=== PATIENT | male | born 1960 | race African-American/Black ===

== ENCOUNTER → 2016-09-13 | Outpatient (CLI) | payer BC ==
--- NOTE | 2016-09-13 14:16 | KCIC ---
4 view left knee HISTORY: Posterior knee pain for 5 days. Hyperflexion injury. Surgery earlier this year. FINDINGS: Left knee replacement is identified. No evidence of an acute fracture. No aggressive bone destruction or osteolysis. IMPRESSION: No acute radiographic findings, post left knee arthroplasty. Electronically signed by: Shawn White MD (09/13/2016 2:13 PM)
== END | disposition home or self-care (01) ==
LOC: KCIC 12:47
PROVIDERS: ATTEND Family Medicine
DX: M25.562 Pain in left knee (principal)
CPT/HCPCS: 73562

== ENCOUNTER → 2018-12-30 | Outpatient (CLI) | payer BC ==
--- NOTE | 2018-12-30 17:56 | KCIC ---
LUMBAR SPINE MIN 4V History: Low back pain, right hip pain Comparison: None FINDINGS: 5 views of the lumbar spine are submitted. There is [id number] levoscoliosis centered near L4. There is very mild left lateral subluxation L4 relative to L5. There is moderate to severe degenerative disc disease L5-S1 and to a somewhat lesser degree at L4-5. There is multilevel spondylosis. There is multilevel lumbar facet degenerative change. There is likely minimal posterior subluxation L1 relative to L2. Impression: 1. There is lumbar levoscoliosis, mild abnormal alignment as stated. There is degenerative disc disease and spondylosis greatest L4-5 and L5-S1. There is multilevel lumbar facet degenerative change. Electronically signed by: Deejay Banks MD (12/30/2018 5:53 PM) [id number]
--- NOTE | 2019-01-01 08:47 | KCIC ---
EXAM: AP, oblique and lateral views of the bilateral knees DATE: 12/30/2018 12:00 AM INDICATION: Bilateral knee pain COMPARISON: No Prior FINDINGS: Left knee: Changes of left total knee arthroplasty, in near-anatomic alignment without definite hardware complication or fracture. Small left knee joint effusion, stable. Right knee: Moderate medial compartment joint space narrowing with tricompartmental osteophytes. There is mild lateral subluxation of the right tibia relative to the right femur. Small right knee joint effusion. Mild decreased bone mineral density. No acute fracture or dislocation. IMPRESSION: 1. Right knee osteoarthritis, medial compartment predominant. 2. Left total knee arthroplasty, in good alignment without definite hardware complication or fracture. 3. Small bilateral knee joint effusions. 4. No acute fracture or dislocation. Electronically signed by: Dany Rodriguez MD (01/01/2019 8:44 AM) [id number]
== END | disposition home or self-care (01) ==
LOC: KCIC 13:58
PROVIDERS: ATTEND Family Medicine
DX: M51.37 Other intervertebral disc degeneration, lumbosacral region (principal); M47.816 Spondylosis without myelopathy or radiculopathy, lumbar region; M17.11 Unilateral primary osteoarthritis, right knee; M25.462 Effusion, left knee; M25.461 Effusion, right knee; M41.86 Other forms of scoliosis, lumbar region; M25.761 Osteophyte, right knee
CPT/HCPCS: 72110; 73562

== ENCOUNTER → 2019-05-25 | Outpatient (CLI) | payer BC ==
[~2019-05-25] MED LIST: AMLO5TAB10 PO; ASPI81TA50 PO; DOXA8TAB59 PO; IBUP-1060 PO; IOHEXOL 180 MG/ML 10 ML VIAL. ONE; LOSA100T14 PO; METF10007 PO; methylPREDNISolone ACETATE 40 MG/ML VIAL. ONE; methylPREDNISolone ACETATE 80 MG/ML VIAL. ONE
--- NOTE | 2019-05-25 13:39 | PAIN ---
DATE OF SERVICE: 05/25/2019 INITIAL CONSULTATION FOR PAIN CLINIC CHIEF COMPLAINT: Low back and bilateral lower extremity pain. HISTORY OF PRESENT ILLNESS: This is a 58-year-old male who presents with history of pain for about 2 years, increasing, not a result of any specific injury or action he is aware of, but worse and across the low back and bilateral lower extremities, mostly in the posterior gluteus, posterior lateral thighs and anterior thighs, but worst across the low back. The patient reports it is worse with walking, standing, changing positions, better with sitting or lying down. Generally awaken him from sleep about 2-3 times at night. It has been getting worse over the past 4-5 months. The patient reports it does not affect his bowel or bladder control, but does affect his ability to walk. Could not use any assistive devices, however, the patient has had physical therapy, 6 weeks of this, and still note significant decrease in pain. The patient reports that the traction that he used in physical therapy was helpful, but after about half a day, the pain returned, but felt much improved during the traction and right afterwards. The patient rates his disability rating from 0-10, 10 being the worst, it is a 5 with family and home responsibilities, 9 with recreation and social activity, 8 with occupation, 7 with sexual behavior, self-care and life support activities. The patient did have some plain films of the lumbar spine showing lumbar levoscoliosis with mild abnormal alignment. There is degenerative disk disease and spondylosis, greatest at L4-L5 and L5-S1 with multilevel lumbar facet degenerative change. The patient reports no loss of motor function, but significant fatigability of both the lower extremities equally. PAST MEDICAL HISTORY: Significant for type 2 diabetes, hypertension, arthritis. PREVIOUS SURGERY: Include left knee replacement in 2000, cyst removed in 2010, carpal tunnel repair in 2010 and left total knee in 2018 revision. CURRENT MEDICATIONS: Include daily baby aspirin, ibuprofen, metformin, losartan, amlodipine, and doxazosin. ALLERGIES: The patient has no known drug allergies. FAMILY HISTORY: Significant for no major medical problems or conditions that he is aware of. SOCIAL HISTORY: The patient does not drink alcohol, does not smoke. Does not use any illegal, illicit or recreational drugs. He is , lives with his spouse, lives locally in [place], [place]. REVIEW OF SYSTEMS: The patient's review of systems is positive for those items mentioned in history of present illness. All systems reviewed and otherwise negative. It is complete, full and well documented on the patient's chart. PHYSICAL EXAMINATION: VITAL SIGNS: The patient's blood pressure is 132/78, pulse 94, respirations 18, temperature 98.3 degrees Fahrenheit, height is 6 feet, weight is 256 pounds. GENERAL: The patient is alert and oriented x3, appropriate, very pleasant demeanor. HEENT: Head shows normocephalic, atraumatic. Extraocular movements are intact and symmetrical. Oral cavity: Mucous membranes moist and pink. Dentition is intact. NECK: Shows anterior throat supple without palpable lymphadenopathy noted. Swallow reflex symmetrical. CHEST: Shows normal on inspection. Breath sounds are clear bilaterally. HEART: Shows S1, S2 clear. No murmurs auscultated. ABDOMEN: Soft, nontender, nondistended. No palpable organomegaly is noted. No rebound or guarding demonstrated. BACK: Shows spine grossly in the midline. Normal appearing thoracic kyphosis and minor flattening of lumbar lordotic curvature. Lumbar paraspinous muscle shows symmetrical on inspection. Palpation shows some moderate tenderness diffusely, but only diffusely without significant radiation. EXTREMITIES: The patient's lower extremities show deep tendon reflexes at 2+ patellar, 1+ tendo-calcaneus tendons are equal. Motor exam is strong with 5/5 dorsiflexion, extension, quadriceps and hamstring flexion. Peripheral pulses are 1+ posterior tibia. No peripheral edema is noted. Lower extremities are warm and dry to touch, equal in color and appearance. Straight leg raise negative for reproduction of radicular symptoms bilaterally. Gaenslen's and Álvaro's maneuvers are negative bilaterally as well. The patient is able to stand, stand on his toes without significant difficulty or loss of balance, walks with a normal appearing gait for short distance in the office today without any assistive devices. It does not appear to favor the right or left lower extremity significantly. SKIN: The patient's skin shows warm and dry, good turgor. No edema. No sores, rashes or bruising. IMPRESSION: 1. This is a 58-year-old male with approximately 2-year history of increasing pain, low back, bilateral lower extremities, worse over the past 5-6 months status post physical therapy without significant improvement. 2. ____ dural puncture, headaches, spinal cord and/or nerve damage, side effects of steroid medication and poor results regarding pain control. The patient understands and wished to proceed. The patient will return to clinic in approximately 2 weeks for followup. He was counseled as to return appointment, activity level and side effects to be aware of. DIAGNOSES: Lumbar radiculopathy with lumbar degenerative disk disease and lumbar spondylosis. PROCEDURES: Lumbar epidural steroid injection, translaminar approach at L4-L5 level using C-arm fluoroscopic guidance under sterile prep and drape using local anesthetic. MEDICATION INJECTED: A total of 120 mg of Depo-Medrol plus 10 mL of preservative-free normal saline and 2 mL of contrast. CONDITION AT DISCHARGE: Stable. The patient tolerated the procedure well, had no complications. MARY HIGH MD DR: OTIS/dannie JOB#: [id number] / [id number]
== END ==
LOC: PNCL 10:25
PROVIDERS: ATTEND Anesthesiology
DX: M51.16 Intervertebral disc disorders with radiculopathy, lumbar region (principal); M47.816 Spondylosis without myelopathy or radiculopathy, lumbar region; E11.9 Type 2 diabetes mellitus without complications; I10 Essential (primary) hypertension; Z87.39 Personal history of other diseases of the musculoskeletal system and connective tissue; Z96.652 Presence of left artificial knee joint; Z98.890 Other specified postprocedural states; Z79.84 Long term (current) use of oral hypoglycemic drugs
CPT/HCPCS: 62323; J1030; J1040; Q9965

== ENCOUNTER → 2019-06-08 | Outpatient (CLI) | payer BC ==
--- NOTE | 2019-06-08 12:36 | PAIN ---
DATE OF SERVICE: 06/08/2019 PROGRESS NOTE FOR PAIN CLINIC DIAGNOSES: Lumbar radiculopathy with lumbar degenerative disk disease and lumbar spondylosis. HISTORY OF PRESENT ILLNESS: The patient is a 58-year-old male who returns for followup status post lumbar epidural steroid injection x 1. The patient reports about 75% improvement in pain in his low back and bilateral lower extremities. The patient reports it has been returning slightly, mostly just in the back now but his legs are doing much better. The patient reports he has been increasing activity with greater distance walking and doing household activities and work activities, all with greater ease and comfort. The patient reports he is sleeping well at night. It does not awaken him from sleep. He sleeps about 8 hours a night on average. The patient reports his pain is a 9 on a scale of 10 at its worst over the past week, 7 on average, 3 at its least, and is a 3 today. The patient reports that it is aching, stabbing, and cramping, off and on in intensity now, and not radiating to the lower extremities, nearly as much as it was. The patient reports no new motor or sensory deficits and no new bowel or bladder incontinence or other complaints. PHYSICAL EXAMINATION: VITAL SIGNS: The patient's blood pressure is 140/98, pulse 96, respirations 18, temperature 98.1 degrees Fahrenheit, height is 6 feet, and weight is 257 pounds. GENERAL: The patient is awake, alert, oriented, and appropriate with very pleasant demeanor. HEENT: Normocephalic and atraumatic. Extraocular movements are intact and symmetrical. Oral cavity: Mucous membranes are moist and pink. Dentition is intact. NECK: Anterior throat supple without palpable lymphadenopathy noted. Swallow reflex symmetrical. CHEST: Normal on inspection. Breath sounds are clear bilaterally. HEART: S1, S2 clear. No murmurs auscultated. ABDOMEN: Soft, nontender, and nondistended. BACK: Spine grossly in the midline. Normal appearing thoracic kyphosis and lumbar lordotic curvature. Lumbar paraspinous muscle shows symmetrical on inspection and palpation shows some moderate tenderness diffusely, bilaterally going diffusely without significant radiation. EXTREMITIES: The patient's lower extremities show deep tendon reflexes at 2+ in the patellar and 1+ in tendo-calcaneus tendons. Motor exam is strong with 5/5 dorsiflexion and extension and equal. Peripheral pulses are 1+ in posterior tibia. No peripheral edema bilaterally. Options were discussed with the patient. The patient's old chart was reviewed. His current medication regimen updated. Current review of systems updated today as well, and we will proceed with the second in a series of lumbar epidural steroid injections today with fluoroscopic guidance. Risks were again discussed including but not limited to bleeding, infection, possibility of epidural hematoma, subsequent neurological compromise, dural puncture, headaches, spinal cord and/or nerve damage, side effects of steroid medication, and poor results regarding pain control. The patient understands and wished to proceed. The patient will return to clinic in approximately 2 weeks for followup. She was counseled on return appointment, activity level, and side effects to be aware of. DIAGNOSIS: Lumbar radiculopathy with lumbar degenerative disk disease and lumbar spondylosis. PROCEDURE: Lumbar epidural steroid injection, translaminar approach at L4-L5 level using C-arm fluoroscopic guidance under sterile prep and drape using local anesthetic. MEDICATION INJECTED: A total of 120 mg Depo-Medrol plus 10 mL of preservative-free normal saline and 2 mL of contrast. CONDITION AT DISCHARGE: Stable. The patient tolerated the procedure well and had no complications. MARY HIGH MD DR: OTIS/dannie JOB#: [id number] / [id number]
== END ==
LOC: PNCL 11:23
PROVIDERS: ATTEND Anesthesiology
DX: M51.16 Intervertebral disc disorders with radiculopathy, lumbar region (principal); M47.816 Spondylosis without myelopathy or radiculopathy, lumbar region
CPT/HCPCS: 62323; J1030; J1040; Q9965

== ENCOUNTER → 2019-06-22 | Outpatient (CLI) | payer BC ==
--- NOTE | 2019-06-22 12:29 | PAIN ---
DATE OF SERVICE: 06/22/2019 PROGRESS NOTE FOR PAIN CLINIC DIAGNOSES: Lumbar radiculopathy with lumbar degenerative disk disease and lumbar spondylosis. HISTORY OF PRESENT ILLNESS: The patient is a 58-year-old male who returns for followup status post lumbar epidural steroid injection x 2. The patient reports approximately 75% improvement overall, doing much better, increased his activity with greater ease and comfort, walking greater distances, doing household activities as well as working putting in the driveway in the left side of his house and has been working at his job 6 days a week, was on his feet most of his time. The patient reports he is tolerating this quite well. Reports he is still sleeping well at night, does not bother him when he is off his feet or lying down, more noticeable with standing and walking. The patient reports it is in the mid back, slightly to his right side, no longer radiating to the lower extremities. The patient reports that 10 on a scale of 10 at its worse, the past week, 4 on average, 3 at its least and is a 3 today. The patient reports it is aching, sharp, tight, shooting into the right lower extremity, but again only very occasionally. The patient reports no new motor or sensory deficits, no new bowel or bladder incontinence. PHYSICAL EXAMINATION: VITAL SIGNS: The patient's blood pressure 150/100, pulse 88, respirations 18, temperature 97.4 degrees Fahrenheit, height 6 feet, weight is 258 pounds. GENERAL: The patient is awake, alert, oriented, appropriate, very pleasant demeanor. HEENT: Head shows normocephalic, atraumatic. Extraocular movements are intact and symmetrical. Oral cavity: Mucous membranes moist and pink. Dentition is intact. NECK: Shows anterior throat supple without palpable lymphadenopathy noted. Swallow reflex symmetrical. CHEST: Shows normal on inspection. Breath sounds are clear bilaterally. HEART: Shows S1, S2 clear. No murmurs auscultated. ABDOMEN: Soft, nontender, nondistended. No palpable organomegaly is noted. BACK: Shows spine grossly in the midline. Normal appearing cervical lordotic curvature, thoracic kyphotic curvature and lumbar lordotic curvature. Lumbar paraspinous muscle shows symmetrical on inspection, on palpation shows some moderate tenderness diffusely bilaterally, but only diffusely without significant radiation. The patient has good rotational motion of lumbar spine, both laterally as well as extension and flexion without significant pain. EXTREMITIES: The patient's lower extremities show deep tendon reflexes at 2+ in the patellar, 1+ tendo-calcaneus tendons are equal and symmetrical. Peripheral pulses are 1+ posterior tibia. No peripheral edema is noted. NEUROLOGIC: Motor exam is strong with 5/5 dorsiflexion, extension and equal bilaterally. Options were discussed with the patient. The patient's old chart was reviewed as his current medication regimen updated. Current review of systems is updated today as well. We will proceed with a third in the series of lumbar epidural steroid injection today with fluoroscopic guidance. Risks were again discussed including, but not limited to bleeding, infection, possibility of epidural hematoma, subsequent neurological compromise, dural puncture, headaches, spinal cord and/or nerve damage, side effects of steroid medication and poor results regarding pain control. The patient understands and wished to proceed. The patient will return to clinic in approximately 2 weeks for followup, was counseled as to return appointment, activity level and side effects to be aware of. DIAGNOSES: Lumbar radiculopathy with lumbar degenerative disk disease and lumbar spondylosis. PROCEDURE: Lumbar epidural steroid injection, translaminar approach L4-L5 level using C-arm fluoroscopic guidance under sterile prep and drape using local anesthetic. MEDICATION INJECTED: A total of 120 mg Depo-Medrol plus 10 mL of preservative-free normal saline and 2 mL of contrast. CONDITION AT DISCHARGE: Stable. The patient tolerated the procedure well, had no complications. MARY HIGH MD DR: OTIS/dannie JOB#: [id number] / [id number]
== END ==
LOC: PNCL 11:04
PROVIDERS: ATTEND Anesthesiology
DX: M51.16 Intervertebral disc disorders with radiculopathy, lumbar region (principal); M47.816 Spondylosis without myelopathy or radiculopathy, lumbar region
CPT/HCPCS: 62323; J1030; J1040; Q9965

== ENCOUNTER → 2020-10-11 | Outpatient (CLI) | payer BC ==
[~2020-10-11] MED LIST changes: +AMLO-186 PO; -AMLO5TAB10 PO; -IOHEXOL 180 MG/ML 10 ML VIAL. ONE; -methylPREDNISolone ACETATE 40 MG/ML VIAL. ONE; -methylPREDNISolone ACETATE 80 MG/ML VIAL. ONE
--- NOTE | 2020-10-11 15:37 | KCIC ---
EXAM: Right knee, 3 views. HISTORY: Pain. COMPARISON: 12/30/2018 FINDINGS: 3 views of the right knee are obtained. There is severe medial compartment joint space narr owing with subchondral sclerosis, subchondral cyst formation and marginal spurring. There is moderate lateral and patellofemoral compartment spurring. There is a small joint effusion. There is genu varu s and slight lateral subluxation of the tibia relative to the femoral condyles. IMPRESSION: 1. Severe medial compartment predominant osteoarthritis of the right knee with genu varus and small j oint effusion. 2. No acute osseous finding. Electronically signed by: Camilla Martinez MD (10/11/2020 3:35 PM) [id number]
== END ==
LOC: KCIC 14:42
PROVIDERS: ATTEND Family Medicine
DX: M17.11 Unilateral primary osteoarthritis, right knee (principal); M25.461 Effusion, right knee; M21.161 Varus deformity, not elsewhere classified, right knee; M76.891 Other specified enthesopathies of right lower limb, excluding foot
CPT/HCPCS: 73562

== ENCOUNTER → 2020-12-09 | Outpatient (CLI) | payer BC ==
--- NOTE | 2020-12-09 16:02 | KCIC ---
XR CHEST 2V INDICATION: Reason: Pre-op CXR for TKA. Hx. diabetes. / Spl. Instructions: / History: . COMPARISON STUDY: None. FINDINGS: Lungs: Low lung volume. No pulmonary mass or consolidation. The tracheobronchial tree and hilar struc tures are normal. Pleura: No pleural effusion or pneumothorax. Heart and Mediastinum: The cardiomediastinal silhouette is normal. The great vessels of the thorax ar e normal. IMPRESSION: No acute cardiopulmonary process. Electronically signed by: Deejay Mcmullen MD (12/09/2020 4:00 PM) [id number]
== END ==
LOC: KCIC 12:41
PROVIDERS: ATTEND Family Medicine
DX: Z01.818 Encounter for other preprocedural examination (principal)
CPT/HCPCS: 71046